=== PATIENT | male | born 1980 | race American Indian/Alaskan Native ===

== ENCOUNTER 2016-06-12 20:09 | Emergency (ER) | payer OTHER ==
[2016-06-12] MEDS ORDERED: TYLENOL ONE (21:04)
[2016-06-12 21:05] VITALS: BP 110/73
[2016-06-12] MEDS ORDERED: TYLENOL PO ONE (21:06)
[2016-06-12] MEDS ORDERED: TORADOL IM ONE (22:42)
[2016-06-12] MEDS ORDERED: DECADRON IM ONE (22:42)
--- NOTE | 2016-06-12 22:42 | Emergency Department Report ---
ED Headache HPI - General Chief Complaint: Headache Stated Complaint: SHARP PAIN BEHIND EYES AND NOSE Time Seen by Provider: 06/12/16 22:41 Source: patient - History of Present Illness Initial Comments: Seen here reports headache to his facial area to the right frontal area and also pain to his right nasal area. Denies any trauma and reports nasal congestion. Patient reports that he has a history of migraine headache but he has not have one in a year. Pain is 4 out of 10 and achy in and intermittent. Nausea vomiting, blurred vision, head injury or loss of consciousness. He said he has some coughing, denies chest pain or shortness of breath. She reports nasal congestion and pain as been going on for over a week. Timing/Duration: 24 hours, waxing and waning Quality: mild Head Injury Location: frontal, temporal Recent Head Trauma: occasional headaches Modifying Factors: improves with: other (none) Associated Symptoms: facial pain, nasal congestion, nasal drainage. denies: confusion, fatigue, fever/chills, flushing, loss of consciousness, nausea/ vomiting, numbness in legs/feet, rash, seizures, sinus infection, stiff neck, vision changes, weakness Allergies/Adverse Reactions: Allergies No Known Allergies Allergy (Unverified 10/12/14 01:19) Home Medications: Ambulatory Orders Permethrin 5% [Acticin 5% CREAM] 1 applicatio TP ONCE #1 tube 11/25/14 hydrOXYzine HCL [Atarax] 25 mg PO Q6HR PRN #15 tablet 11/25/14 Permethrin 5% [Acticin 5% CREAM] 1 applicatio TP ONCE #1 bottle 11/29/14 Prednisone [predniSONE 10 mg (6-Day Pack, 21 Tabs)] 10 mg PO .TAPER #1 tab.ds.pk 11/29/14 hydrOXYzine HCL [Atarax] 25 mg PO Q6HR PRN #30 tablet 11/29/14 Fluticasone [Flonase] 1 spray NS QDAY #1 bottle 06/12/16 Ibuprofen [Motrin] 600 mg PO Q8H PRN #15 tablet 06/12/16 Loratadine [Claritin] 10 mg PO DAILY #14 tablet 06/12/16 ED Review of Systems ROS: Stated complaint: SHARP PAIN BEHIND EYES AND NOSE Other details as noted in HPI Comment: All other systems reviewed and negative Constitutional: denies: chills, fever ENT: congestion. denies: as per HPI, ear pain, throat pain Respiratory: cough. denies: shortness of breath, SOB with exertion, SOB at rest , stridor, wheezing Cardiovascular: denies: chest pain, palpitations, edema, syncope Gastrointestinal: denies: nausea, vomiting Musculoskeletal: denies: back pain, arthralgia Skin: denies: lesions Neurological: headache. denies: weakness, numbness, paresthesias, confusion, abnormal gait, vertigo ED Past Medical Hx - Past Medical History Previous Medical History?: Yes Hx Headaches / Migraines: Yes - Surgical History Past Surgical History?: No - Family History Family history: no significant - Social History Smoking Status: Never Smoker Substance Use Type: None - Medications Home Medications: Home Medications Medication Instructions Recorded Confirmed Last Taken Type Permethrin 5% [Acticin 5% CREAM] 1 applicatio TP ONCE #1 tube 11/25/14 Unknown Rx hydrOXYzine HCL [Atarax] 25 mg PO Q6HR PRN #15 tablet 11/25/14 Unknown Rx Permethrin 5% [Acticin 5% CREAM] 1 applicatio TP ONCE #1 bottle 11/29/14 Unknown Rx Prednisone [predniSONE 10 mg 10 mg PO .TAPER #1 tab.ds.pk 11/29/14 Unknown Rx (6-Day Pack, 21 Tabs)] hydrOXYzine HCL [Atarax] 25 mg PO Q6HR PRN #30 tablet 11/29/14 Unknown Rx Fluticasone [Flonase] 1 spray NS QDAY #1 bottle 06/12/16 Unknown Rx Ibuprofen [Motrin] 600 mg PO Q8H PRN #15 tablet 06/12/16 Unknown Rx Loratadine [Claritin] 10 mg PO DAILY #14 tablet 06/12/16 Unknown Rx ED Physical Exam - General Limitations: No Limitations General appearance: alert, in no apparent distress - Head Head exam: Present: atraumatic, normocephalic, normal inspection - Expanded Head Exam Expanded Head exam: Absent: laceration, abrasion, contusion, hematoma, racoon eyes, velez's sign, general tenderness, tenderness of temporal artery, CSF rhinorrhea , CSF otorrhea - Eye Eye exam: Present: normal appearance, PERRL, EOMI. Absent: nystagmus, periorbital swelling, periorbital tenderness Pupils: Present: normal accommodation - ENT ENT exam: Present: normal orophraynx, mucous membranes moist, normal external ear exam, other (bilateral nasal mucosa congested with erythema and clear drainage. Positive right frontal and maxillary sinus tenderness to palpate). Absent: TM's normal bilaterally (lateral TM congested without any erythema) - Neck Neck exam: Present: normal inspection. Absent: tenderness, thyromegaly - Respiratory Respiratory exam: Present: normal lung sounds bilaterally. Absent: respiratory distress - Cardiovascular Cardiovascular Exam: Present: regular rate, normal rhythm, normal heart sounds - GI/Abdominal GI/Abdominal exam: Present: soft, normal bowel sounds. Absent: distended, tenderness, guarding, rebound, rigid - Extremities Exam Extremities exam: Present: normal inspection, full ROM, normal capillary refill. Absent: tenderness, pedal edema, joint swelling, calf tenderness - Back Exam Back exam: Present: normal inspection, full ROM - Neurological Exam Neurological exam: Present: alert, oriented X3, normal gait, reflexes normal. Absent: motor sensory deficit - Expanded Neurological Exam Expanded Neurological exam: Absent: innattentive, memory loss-remote event, memory loss- recent event, ataxia, receptive aphasia, expressive aphasia, total aphasia, tremor, protecting the airway Patient oriented to: Present: person, place, time Speech: Present: fluid speech Cranial nerves: EOM's Intact: Normal, Gag Reflex: Normal, Nystagmus: Normal Cerebellar function: Romberg: Normal Upper motor neuron: Pronator Drift: Normal, Sensory Extinction: Normal Sensory exam: Upper Extremity Light Touch: Normal, Upper Extremity Temperature: Normal, UE 2 Point Discrimination: Normal, Lower Extremity Light Touch: Normal, Lower Extremity Temperature: Normal, LE 2 Point Discrimination: Normal Motor strength exam: RUE: 5, LUE: 5, RLE: 5, LLE: 5 DTR: bicep (R): 2+, bicep (L): 2+, tricep (R): 2+, tricep (L): 2+, knee (R): 2+ , knee (L): 2+, ankle (R): 2+, ankle (L): 2+ Best Eye Response (Malcolm): (4) open spontaneously Best Motor Response (Malcolm): (6) obeys commands Best Verbal Response (Malcolm): (5) oriented Higden Total: 15 - Psychiatric Psychiatric exam: Present: normal affect, normal mood - Skin Skin exam: Present: warm, dry, intact, normal color. Absent: rash ED Course Vital Signs 06/12/16 20:57 Temperature 97.2 F L Pulse Rate 86 Respiratory 16 Rate Blood Pressure 110/73 Blood Pressure 110/73 [Left] O2 Sat by Pulse 100 Oximetry - Reevaluation(s) Reevaluation #1: 06/13/16 07:18 She given Tylenol 975 mg in triage area which did not relieve his headache completely. Given Decadron 10 mg and Toradol 60 mg IM and he voiced relief of his headache. ED Medical Decision Making - Medical Decision Making ED Course: Patient given Tylenol 975 mg, Decadron 10 mg and Toradol 60 mg IM and emergency room. He voiced relief of his headache. I discussed with patient that he has viral sinus infection which is upper respiratory tract infection and this could be causing his headache because he has a history of migraine he will need to follow-up with a neurologist for further evaluation of treatment. He voiced understanding of discharge instruction and treatment plan. Patient given prescription for Motrin, Claritin and Flonase. Critical care attestation.: If time is entered above; I have spent that time in minutes in the direct care of this critically ill patient, excluding procedure time. ED Disposition Clinical Impression: Acute inflammation of sinus Qualifiers: Sinusitis location: pansinusitis Recurrence: not specified as recurrent Qualified Code(s): J01.40 - Acute pansinusitis, unspecified Acute headache Qualifiers: Headache type: unspecified Intractability: not intractable Qualified Code(s): R51 - Headache Disposition: DISCHARGED TO HOME OR SELFCARE Is pt being admited?: No Does the pt Need Aspirin: No Condition: Stable Instructions: Sinusitis (ED), Acute Headache (ED) Additional Instructions: Follow-up with neurologist as instructed investigate headache. Take medication as prescribed. Prescriptions: Fluticasone [Flonase] 1 spray NS QDAY #1 bottle Ibuprofen [Motrin] 600 mg PO Q8H PRN #15 tablet PRN Reason: Pain Loratadine [Claritin] 10 mg PO DAILY #14 tablet Referrals: PRIMARY CARE,MD [Primary Care Provider] - 3-5 Days Forms: Work/School Release Form(ED)
== END 2016-06-12 23:59 | disposition home or self-care (01) ==
LOC: ED 20:09
DX: J01.40 Acute pansinusitis, unspecified (principal); G43.909 Migraine, unspecified, not intractable, without status migrainosus
CPT/HCPCS: 96372; 99282; J1100; J1885